=== PATIENT | male | born 1955 | race Two or more races ===

== ENCOUNTER 2019-12-04 09:49 | Emergency (ER) | payer OTHER ==
[~2019-12-04] VITALS: Ht 182.9 cm; Wt 129.3 kg
[2019-12-04] MEDS ORDERED: GLUMETZA500 MG PO (10:04)
[2019-12-04] MEDS ORDERED: LIPI PO (10:05)
[2019-12-04] MEDS ORDERED: ASPIR 8181 MG PO (10:05)
[2019-12-04] MEDS ORDERED: PLAVIX75 MG PO (10:07)
== END 2019-12-04 14:04 | disposition home or self-care (01) ==
LOC: ER 09:49
DX: M25.78 Osteophyte, vertebrae (principal)

== ENCOUNTER 2021-03-27 06:14 | Emergency (ER) | payer OTHER ==
[~2021-03-27] VITALS: Ht 182.9 cm; Wt 124.7 kg
[~2021-03-27 06:14] MED LIST: ASPIR 8181 MG PO; GLUMETZA500 MG PO; LIPI PO; PLAVIX75 MG PO
[2021-03-27] MEDS ORDERED: LIPITOR40 M1 PO (06:33)
[2021-03-27] MEDS ORDERED: TOPROL XL50 M1 PO (06:33)
[2021-03-27] MEDS ORDERED: LYRICA50 MG PO (06:33)
[2021-03-27] MEDS ORDERED: ATACAND4 MG PO (06:33)
[2021-03-27] MEDS ORDERED: DICLOFENAC SODI75 MG PO (06:53)
== END 2021-03-27 07:36 | disposition home or self-care (01) ==
LOC: ER 06:14
DX: M54.41 Lumbago with sciatica, right side (principal)

== ENCOUNTER 2022-11-09 12:24 | Emergency (ER) | payer OTHER ==
[~2022-11-09] VITALS: Ht 182.9 cm; Wt 111.6 kg
[~2022-11-09 12:24] MED LIST changes: +ATACAND4 MG PO; +DICLOFENAC SODI75 MG PO; +LIPITOR40 M1 PO; +LYRICA50 MG PO; +TOPROL XL50 M1 PO
[2022-11-09] MEDS ORDERED: KETO10TA2 PO (19:14)
[2022-11-09] MEDS ORDERED: CIPRO500 MG PO (19:14)
[2022-11-09] MEDS ORDERED: TAMS0.4C PO (19:14)
== END 2022-11-09 19:58 | disposition home or self-care (01) ==
LOC: ER 12:24
DX: N20.9 Urinary calculus, unspecified (principal); R31.9 Hematuria, unspecified

== ENCOUNTER 2022-11-27 10:06 | Emergency (ER) | payer OTHER ==
[~2022-11-27] VITALS: Ht 182.9 cm; Wt 111.6 kg
[~2022-11-27 10:06] MED LIST changes: +CIPRO500 MG PO; +KETO10TA2 PO; +TAMS0.4C PO
== END 2022-11-27 12:50 | disposition home or self-care (01) ==
LOC: ER 10:06
DX: M54.16 Radiculopathy, lumbar region (principal)

== ENCOUNTER → 2023-10-04 | Emergency (ER) | payer OTHER ==
[~2023-10-04] VITALS: Ht 180.3 cm; Wt 120.2 kg
[~2023-10-04] MED LIST changes: +ONDANSETRON ODT8 MG PO; +PAXLOVID 300-11 EACH PO; +PEPCID AC20 MG PO; +PROAIR RESPICL90 MCG IH; +TUSNEL LIQUID178 ML PO; +VOLTAREN ARTHRI20 GM PO
[2023-10-04 09:47] LABS: HEMATOCRIT 40.4 % (39.0-48.0); HEMOGLOBIN 13.9 g/dL (13-16.00); MEAN CELL VOLUME 85.4 fL (80.0-100.00); MEAN CORPUSCULAR HEMOGLOBIN 29.4 pg (27.00-32.0); MEAN CORPUSCULAR HGB CONC 34.4 g/dl (32.0-36.0); PLATELET COUNT 171 K/uL (150-450); RED BLOOD COUNT 4.73 M/uL (4.00-6.00); RED CELL DISTRIBUTION WIDTH 14.2 % (11.5-14.5)
== END | disposition home or self-care (01) ==
LOC: ER 07:27
PROVIDERS: General Practice
DX: U07.1 COVID-19 (principal); E11.9 Type 2 diabetes mellitus without complications; Z79.84 Long term (current) use of oral hypoglycemic drugs; I10 Essential (primary) hypertension; Z88.0 Allergy status to penicillin